=== PATIENT | male | born 1960 | race Two or more races ===

== ENCOUNTER 2017-12-17 09:29 | Emergency (ER) | payer OTHER ==
[~2017-12-17] VITALS: Ht 165.1 cm; Wt 71.2 kg
[2017-12-17] MEDS ORDERED: NORVASC2.5 M1 (09:34)
[2017-12-17] MEDS ORDERED: LIPITOR20 MG (09:34)
[2017-12-17] MEDS ORDERED: PROTONIX40 MG (09:34)
== END 2017-12-17 11:54 | disposition home or self-care (01) ==
LOC: ER 09:29
DX: M79.602 Pain in left arm (principal); M54.2 Cervicalgia

== ENCOUNTER 2021-11-06 21:42 | Emergency (ER) | payer OTHER ==
[~2021-11-06] VITALS: Ht 162.6 cm; Wt 68.9 kg
[~2021-11-06 21:42] MED LIST: LIPITOR20 MG; NORVASC2.5 M1; PROTONIX40 MG
[2021-11-06] MEDS ORDERED: LISINOPRIL2.5 MG PO (21:55)
[2021-11-07] MEDS ORDERED: CIPRO500 MG PO (02:06)
== END 2021-11-07 02:13 | disposition home or self-care (01) ==
LOC: ER 21:42
DX: N39.0 Urinary tract infection, site not specified (principal)

== ENCOUNTER 2021-11-16 11:53 | Outpatient (CLI) | payer OTHER ==
[~2021-11-16 11:53] MED LIST changes: +CIPRO500 MG PO; +LISINOPRIL2.5 MG PO
== END 2021-11-16 12:04 | disposition home or self-care (01) ==
LOC: EKG 11:53
PROVIDERS: ATTEND Urology
DX: I11.0 Hypertensive heart disease with heart failure (principal)

== ENCOUNTER 2023-02-10 04:45 | Emergency (ER) | payer OTHER ==
[~2023-02-10] VITALS: Ht 162.6 cm; Wt 69.9 kg
[~2023-02-10 04:45] MED LIST changes: +TADALAFIL20 MG; +TAMSULOSIN HCL0.4 MG
[2023-02-10 06:15] LABS: HEMOGLOBIN 13.8 g/dL (13-16.00); MEAN CELL VOLUME 94.8 fL (80.0-100.00); MEAN CORPUSCULAR HEMOGLOBIN 31.9 pg (27.00-32.0); MEAN CORPUSCULAR HGB CONC 33.6 g/dl (32.0-36.0); PLATELET COUNT 210 K/uL (150-450); RED BLOOD COUNT 4.32 M/uL (4.00-6.00); RED CELL DISTRIBUTION WIDTH 13.3 % (11.5-14.5)
[2023-02-10 06:28] LABS: PH,URINE 5.5 (5.0-8.0); URINE APPEARANCE Clear; URINE BILIRRUBIN Negative (NEGATIVE); URINE BLOOD Large; URINE COLOR Yellow; URINE GLUCOSE Negative (NEGATIVE); URINE LEUKOCYTE Negative; URINE NITRATE Negative; URINE PROTEIN Trace (NEGATIVE); URINE UROBILINOGEN 0.2 E.U./dl
[2023-02-10 06:30] LABS: URINE BACTERIA 41.5 uL (0.0-1933); URINE EPITHELIAL CELLS 9.5 uL (0.0-38.8); URINE RBC 758.1 uL (0.0-20.8); URINE WBC 21.4 uL (0.0-23.2)
[2023-02-10 06:43] LABS: INR 1.04; PARTIAL THROMBOPLASTIN TIME 25.4 SECONDS (22.0-34.0); PROTHROMBIN TIME 10.9 SECONDS (9.0-11.5)
[2023-02-10 06:55] LABS: CALCIUM 9.1 mg/dL (8.5-10.1); CREATININE SERUM 1.19 mg/dL (0.70-1.30); GFR 61.54; POTASSIUM 3.82 mEq/L (3.5-5.1)
[2023-02-10] MEDS ORDERED: KETO10TA2 PO (07:23)
== END 2023-02-10 07:34 | disposition home or self-care (01) ==
LOC: ER 04:46
PROVIDERS: General Practice
DX: N20.0 Calculus of kidney (principal); I10 Essential (primary) hypertension
CPT/HCPCS: 36415; 74176; 96365; 99284; J1885; J3490